=== PATIENT | male | born 1950 | race American Indian/Alaskan Native ===

== ENCOUNTER 2020-10-30 17:26 | Emergency (ER) | payer MEDICARE, MEDICAID ==
--- NOTE | 2020-10-30 17:51 | EDM.PDOC ---
ED HPI GENERAL MEDICAL PROBLEM - General Chief Complaint: ENT Problem Stated Complaint: NOSE BLEED Time Seen by Provider: 10/30/20 17:48 Source of Information: Reports: Patient, RN Notes Reviewed History Limitations: Reports: No Limitations - History of Present Illness INITIAL COMMENTS - FREE TEXT/NARRATIVE: 70-year-old gentleman presents emergency department the complaint of nosebleed, he states it came on suddenly he has not had any trauma no recent surgeries no problems with blood pressure not taking an aspirin he has not had problems with nosebleeds in the past - Related Data Allergies Allergy/AdvReac Type Severity Reaction Status Date / Time No Known Allergies Allergy Verified 10/30/20 17:37 Home Meds: Home Meds Gabapentin [Neurontin] 300 mg PO TID 05/30/15 [History] Indomethacin [Indocin] 50 mg PO TID 05/30/15 [History] Past Medical History HEENT History: Reports: Impaired Vision Cardiovascular History: Reports: High Cholesterol, Hypertension Respiratory History: Reports: Asthma, Bronchitis, Recurrent, COPD Gastrointestinal History: Reports: GERD Neurological History: Reports: Head Trauma - Past Surgical History Head Surgeries/Procedures: Reports: None HEENT Surgical History: Reports: None Cardiovascular Surgical History: Reports: None Respiratory Surgical History: Reports: None GI Surgical History: Reports: None Neurological Surgical History: Reports: None Dermatological Surgical History: Reports: None Social & Family History - Tobacco Use Tobacco Use Status *Q: Former Tobacco User Used Tobacco, but Quit: Yes Month/Year Tobacco Last Used: 2009 Second Hand Smoke Exposure: No - Caffeine Use Caffeine Use: Reports: None - Recreational Drug Use Recreational Drug Use: No ED ROS ENT - Review of Systems Review Of Systems: See Below Constitutional: Reports: No Symptoms HEENT: Reports: Nosebleed ED EXAM, ENT - Physical Exam Exam: See Below Text/Narrative:: Prior to examination blew nose hard and then nose clamp was placed on 10 minutes before examination Exam Limited By: No Limitations General Appearance: Alert, WD/WN, No Apparent Distress Nose: Normal Inspection, Dried Blood. No: Active Bleeding Mouth/Throat: Normal Inspection, Normal Gums, Normal Lips, Normal Oropharynx, Normal Teeth Course - Vital Signs Last Recorded V/S: Last Vital Signs Temp 97.7 F 10/30/20 17:42 Pulse 82 10/30/20 17:42 Resp 16 10/30/20 17:42 BP 167/103 H 10/30/20 17:42 Pulse Ox 97 10/30/20 17:42 Departure - Departure Time of Disposition: 17:59 Disposition: Home, Self-Care 01 Condition: Fair Clinical Impression: Epistaxis - Discharge Information Instructions: Nosebleed, [id number] Referrals: Julius Lee MD [Primary Care Provider] - Forms: ED Department Discharge Additional Instructions: Please followup with your primary care provider in 3-5 days if not better, please call return to the emergency department with worsening of symptoms. Sepsis Event Note (ED) - Evaluation Sepsis Screening Result: No Definite Risk - Focused Exam Vital Signs: Vital Signs Temp Pulse Resp BP Pulse Ox 10/30/20 17:42 97.7 F 82 16 167/103 H 97 10/30/20 17:41 97.7 F 82 16 167/103 H 97 - Assessment/Plan Plan: Assessment Acuity = acute Site and laterality = epistaxis Etiology = unknown Manifestations = none Location of injury = Home Lab values = none Plan Follow-up primary care 3 to 5 days if not better call return to the emergency department worsening symptoms This note was dictated using [employer] voice recognition software please call with any questions on syntax or grammar.
[2020-10-30 17:59] VITALS: BP 167/103; PULSE 82
== END 2020-10-30 18:09 | disposition home or self-care (01) ==
LOC: JP.ED 17:26
DX: R04.0 Epistaxis (principal); I10 Essential (primary) hypertension; J44.9 Chronic obstructive pulmonary disease, unspecified; Z79.899 Other long term (current) drug therapy; Z87.891 Personal history of nicotine dependence
CPT/HCPCS: 99283

== ENCOUNTER 2021-12-04 22:47 | Emergency (ER) | payer MEDICAID, MEDICARE ==
[2021-12-04 23:07] VITALS: BP 173/79; PULSE 73
[2021-12-04 23:54] LABS: CORONAVIRUS COVID-19 NAA NEGATIVE (NEGATIVE)
== END 2021-12-05 00:18 | disposition home or self-care (01) ==
LOC: JP.ED 22:47
DX: J40 Bronchitis, not specified as acute or chronic (principal); J44.9 Chronic obstructive pulmonary disease, unspecified; I10 Essential (primary) hypertension; Z20.822 Contact with and (suspected) exposure to COVID-19
CPT/HCPCS: 0241U; 99284; 99283

== ENCOUNTER 2022-04-22 21:08 | Emergency (ER) | payer MEDICARE ==
[2022-04-22 21:23] VITALS: BP 182/98; PULSE 72
== END 2022-04-22 21:50 | disposition home or self-care (01) ==
LOC: JP.ED 21:08
DX: S60.222A Contusion of left hand, initial encounter (principal); E78.00 Pure hypercholesterolemia, unspecified; I10 Essential (primary) hypertension; K21.9 Gastro-esophageal reflux disease without esophagitis; J44.9 Chronic obstructive pulmonary disease, unspecified; W22.09XA Striking against other stationary object, initial encounter
CPT/HCPCS: 99283

== ENCOUNTER 2023-07-15 07:57 | Emergency (ER) | payer MEDICARE ==
[2023-07-15 08:32] VITALS: BP 185/93; PULSE 68
[2023-07-15 09:16] LABS: BASOPHILS ABSOLUTE AUTO 0.05 K/uL (0.00-0.10); BASOPHILS PERCENT AUTO 0.8 % (0.1-1.3); EOSINOPHILS ABSOLUTE AUTO 0.35 K/uL (0.00-0.40); EOSINOPHILS PERCENT AUTO 5.8 % (0.0-5.4); HEMATOCRIT 44.9 % (38.4-49.7); HEMOGLOBIN 15.5 g/dL (12.9-16.9); IMMATURE GRAN ABSOLUTE AUTO 0.03 K/uL (0.00-0.23); IMMATURE GRAN PERCENT AUTO 0.5 % (0.0-0.7); LYMPHOCYTES ABSOLUTE AUTO 1.58 K/uL (0.8-3.3); LYMPHOCYTES PERCENT AUTO 26.3 % (11.4-47.7); MEAN CORPUSCULAR HEMOGLOBIN 30.6 pg (31.6-35.5); MEAN CORPUSCULAR HGB CONC 34.5 g/dL (31.6-35.5); MEAN CORPUSCULAR VOLUME 88.7 fL (81.4-99.0); MONOCYTES ABSOLUTE AUTO 0.52 K/uL (0.20-0.90); MONOCYTES PERCENT AUTO 8.7 % (3.3-12.6); NEUTROPHILS ABSOLUTE AUTO 3.47 K/uL (1.0-7.6); NEUTROPHILS PERCENT AUTO 57.9 % (40.0-78.1); PLATELET COUNT,PLT 212 K/uL (130-375); RED BLOOD CELL COUNT 5.06 M/uL (4.14-5.76)
[2023-07-15 09:36] LABS: A/G RATIO 1.1 (1.2-2.2); ALANINE AMINOTRANSFERASE,ALT 50 U/L (12-78); ALBUMIN 3.9 g/dL (3.4-5.0); ALKALINE PHOSPHATASE 91 U/L (46-116); ANION GAP 6.7 mmol/L (5.0-14.0); ASPARTATE AMNIOTRANSFERASE,AST 26 U/L (15-37); BILIRUBIN TOTAL 0.6 mg/dL (0.2-1.0); BLOOD UREA NITROGEN,BUN 10 mg/dL (7-18); C-REACTIVE PROTEIN < 0.05 mg/dL (0.0-0.3); CALCIUM 8.2 mg/dL (8.5-10.1); CARBON DIOXIDE,CO2 29 mmol/L (21-32); CHLORIDE,CL 105 mmol/L (100-108); CREATININE 0.9 mg/dL (0.8-1.3); EST CRCL DRUG DOSING (CG) 70.72 mL/min; ESTIMATED GFR 90 mL/min (>60); GLUCOSE RANDOM 126 mg/dL (74-106); POTASSIUM,K 3.8 mmol/L (3.6-5.2); PROTEIN TOTAL,TP 7.3 g/dL (6.4-8.2); SODIUM,NA 141 mmol/L (140-148)
[2023-07-15 09:47] LABS: SEDIMENTATION RATE MANUAL 8 mm/hr (0-20)
[2023-07-15] MEDS ORDERED: Ketorolac 30 MG/ML SDV IM ONE (09:50)
== END 2023-07-15 10:35 | disposition home or self-care (01) ==
LOC: JP.ED 07:57
DX: M79.642 Pain in left hand (principal); M79.641 Pain in right hand
CPT/HCPCS: 36415; 73130; 80053; 84550; 85025; 85651; 86140; 96372; 99283; J1885

== ENCOUNTER 2025-01-04 01:53 | Emergency (ER) | payer MEDICARE, MEDICAID ==
[2025-01-04] MEDS: Ondansetron 4 MG/2 ML SDV IVPUSH ONE (01:56)
[2025-01-04 02:05] LABS: BASOPHILS ABSOLUTE AUTO 0.05 K/uL (0.00-0.10); BASOPHILS PERCENT AUTO 0.4 % (0.1-1.3); EOSINOPHILS ABSOLUTE AUTO 0.13 K/uL (0.00-0.40); HEMATOCRIT 49.1 % (38.4-49.7); HEMOGLOBIN 17.2 g/dL (12.9-16.9); IMMATURE GRAN ABSOLUTE AUTO 0.13 K/uL (0.00-0.23); LYMPHOCYTES ABSOLUTE AUTO 2.84 K/uL (0.8-3.3); LYMPHOCYTES PERCENT AUTO 22.6 % (11.4-47.7); MEAN CORPUSCULAR HEMOGLOBIN 31.5 pg (31.6-35.5); MEAN CORPUSCULAR VOLUME 89.9 fL (81.4-99.0); MONOCYTES ABSOLUTE AUTO 0.72 K/uL (0.20-0.90); MONOCYTES PERCENT AUTO 5.7 % (3.3-12.6); NEUTROPHILS ABSOLUTE AUTO 8.69 K/uL (1.0-7.6); NEUTROPHILS PERCENT AUTO 69.3 % (40.0-78.1); PLATELET COUNT,PLT 253 K/uL (130-375); RED BLOOD CELL COUNT 5.46 M/uL (4.14-5.76); WHITE BLOOD CELL COUNT,WBC 12.6 K/uL (3.2-11.0)
[2025-01-04] MEDS: HYDROmorphone 0.5 MG/0.5 ML Syringe IVPUSH ONE (02:14)
[2025-01-04] MEDS: HYDROmorphone 0.5 MG/0.5 ML Syringe ONE (02:14)
[2025-01-04] MEDS: Sodium Chloride 0.9% 1,000 ML IV ONE (03:20)
[2025-01-04 04:53] LABS: A/G RATIO 1.1 (1.2-2.2); ALANINE AMINOTRANSFERASE,ALT 70 U/L (12-78); ALBUMIN 3.9 g/dL (3.4-5.0); ALKALINE PHOSPHATASE 83 U/L (46-116); ANION GAP 12.5 mmol/L (5.0-14.0); ASPARTATE AMNIOTRANSFERASE,AST 63 U/L (15-37); BILIRUBIN TOTAL 0.6 mg/dL (0.2-1.0); BLOOD UREA NITROGEN,BUN 15 mg/dL (7-18); C-REACTIVE PROTEIN < 0.50 mg/dL (<0.50); CALCIUM 9.2 mg/dL (8.5-10.1); CARBON DIOXIDE,CO2 29 mmol/L (21-32); CHLORIDE,CL 101 mmol/L (100-108); ESTIMATED GFR 78 mL/min (>60); GLUCOSE RANDOM 161 mg/dL (74-106); LACTIC ACID 2.1 mmol/L (0.4-2.0); POTASSIUM,K 3.5 mmol/L (3.6-5.2); PROTEIN TOTAL,TP 7.5 g/dL (6.4-8.2); SODIUM,NA 139 mmol/L (140-148); TROPONIN I HIGH SENSITIVITY 6.1 pg/mL (<=60.3)
[2025-01-04 05:26] VITALS: PULSE 96
[2025-01-04 05:27] VITALS: BP 120/97
[2025-01-04] MEDS: Sodium Chloride 0.9% 10 ML Syringe FLUSH PRN (05:38)
[2025-01-04] MEDS: Iopamidol 612 MG/ML 100 ML Bottle IV SCH (05:38)
[2025-01-04] MEDS: Sodium Chloride 0.9% 100 ML IV SCH (05:38)
[2025-01-05] MEDS: Ondansetron 4 MG/2 ML SDV ONE (05:26)
== END 2025-01-04 05:42 | disposition home or self-care (01) ==
LOC: JP.ED 01:53
DX: K59.00 Constipation, unspecified (principal); I10 Essential (primary) hypertension; E78.00 Pure hypercholesterolemia, unspecified; Z79.51 Long term (current) use of inhaled steroids; Z79.899 Other long term (current) drug therapy
CPT/HCPCS: 36415; 71045; 74177; 80053; 83605; 83690; 84484; 85025; 86140; 93005; 93010; 96361; 96374; 96375; 99283; 99285; J2405; J7030; Q9967